=== PATIENT | female | born 1960 | race Caucasian/White ===

== ENCOUNTER 2019-03-05 20:37 | Emergency (ER) | payer MEDICAID, OTHER ==
[2019-03-05] MEDS: DIPHTH/TET/ACEL PERTUSS (ADULT) 0.5 ML VIAL IM* (21:34)
[2019-03-05] MEDS: HYDROCODONE/APAP (5/325) TAB PO (21:34)
[2019-03-05] MEDS: LIDOCAINE 1% (MDV) 20 ML INJ SC (21:43)
[2019-03-05] MEDS: BACITRACIN 0.9 GM OINT TOP (23:14)
== END 2019-03-05 23:15 | disposition home or self-care (01) ==
LOC: FTE 23:15
DX: S01.112A Laceration without foreign body of left eyelid and periocular area, initial encounter (principal); S06.0X0A Concussion without loss of consciousness, initial encounter; W01.0XXA Fall on same level from slipping, tripping and stumbling without subsequent striking against object, initial encounter; Y92.002 Bathroom of unspecified non-institutional (private) residence as the place of occurrence of the external cause; Z23 Encounter for immunization
CPT/HCPCS: 12011; 70450; 70486; 72125; 73562; 90471; 90715; 99284-25

== ENCOUNTER 2019-03-19 19:59 | Emergency (ER) | payer MEDICAID | END 2019-03-19 23:25 | disposition home or self-care (01) | LOC: FTE 23:25 | DX: H61.21 Impacted cerumen, right ear (principal) | CPT/HCPCS: 99283; Z7502 ==